=== PATIENT | male | born 1990 | race Caucasian/White ===

== ENCOUNTER 2016-05-10 13:50 | Emergency (ER) | payer OTHER ==
[~2016-05-10] VITALS: Ht 177.8 cm; Wt 75.0 kg
[~2016-05-10 13:50] MED LIST: HYDR-3129 PO; PYRI200T4 PO
[2016-05-10 13:52] VITALS: BP 136/74; PULSE 110; RESP 20; TEMP 98.4; O2SAT 100
[2016-05-10 13:58] VITALS: O2SAT 97
--- NOTE | 2016-05-10 13:58 | PD ---
HPI Chief Complaint: Altered Mental Status Time Seen by Provider: 13:51 Travel History International Travel<30 days: No Contact w/Intl Traveler<30days: No History of Present Illness HPI Patient is a 25-year-old male who presents the emergency department dropped off by a friend. Reportedly patient was found down, with a slight amount of blood around the nares shortly after having been seen by a friend, and brought here for altered mental status. When patient arrived at the front door by private vehicle patient was in the vehicle, altered, pierson and ashen, apenic with a pulse. Patient was emergently batted and seen by myself upon arrival. No family and her friend are present at this time and patient is unable to participate with history. [facility] Past Medical History Medical History: Unable to Obtain Past Surgical History Surgical History: Unable to Obtain Social History Alcohol Use: Yes (occ) Tobacco Use: Yes (1/2 ppd) Substance Use: No Allergies-Medications (Allergen,Severity, Reaction): Coded Allergies: No Known Allergies (Verified , 12/05/14) Reported Meds & Prescriptions Reported Meds & Active Scripts Active Review of Systems ROS Limitations: Clinical Condition, Altered Mental Status Physical Exam Exam Limitations: Clinical Condition, Altered Mental Status Narrative GENERAL: Young male pierson, ashen, apneic SKIN: Warm and dry. Tract davis in the arms bilaterally. HEAD: Atraumatic. Minimal dry blood around the narrow. Normocephalic. EYES: Pupils equal and round. 1 mm. No scleral icterus. No injection or drainage. ENT: No nasal bleeding or discharge. Mucous membranes pink and moist. TMs clear bilaterally. NECK: Supple CARDIOVASCULAR: Borderline tachycardia with heart rate in the 90s to 110s, regular rhythm. No murmur appreciated. RESPIRATORY: Apneic, ventilations assisted by bag valve mask with good bilateral breath sounds GASTROINTESTINAL: Abdomen soft, non-tender, nondistended. MUSCULOSKELETAL: No obvious deformities. Tract davis in the bilateral upper extremities NEUROLOGICAL: GCS 3 PSYCHIATRIC: Deferred given mental status Data Data Last Documented VS Vital Signs Date Time Temp Pulse Resp B/P Pulse Ox O2 Delivery O2 Flow Rate FiO2 05/10/16 16:42 90 18 120/60 100 05/10/16 15:15 Nasal Cannula 2 05/10/16 13:52 98.4 Orders Electrocardiogram (05/10/16 13:51) Basic Metabolic Panel (Bmp) (05/10/16 13:51) Complete Blood Count With Diff (05/10/16 13:51) Iv Access Insert/Monitor (05/10/16 13:51) Ecg Monitoring (05/10/16 13:51) Oximetry (05/10/16 13:51) Naloxone Inj (Narcan Inj) (05/10/16 14:00) Sodium Chloride 0.9% Flush (Ns Flush) (05/10/16 14:00) Drug Screen, Random Urine (05/10/16 13:51) Alcohol (Ethanol) (05/10/16 13:51) Labs Laboratory Tests Test 05/10/16 14:04 White Blood Count 14.0 TH/MM3 Red Blood Count 4.97 MIL/MM3 Hemoglobin 14.8 GM/DL Hematocrit 43.2 % Mean Corpuscular Volume 87.0 FL Mean Corpuscular Hemoglobin 29.9 PG Mean Corpuscular Hemoglobin 34.3 % Concent Red Cell Distribution Width 12.4 % Platelet Count 207 TH/MM3 Mean Platelet Volume 9.7 FL Neutrophils (%) (Auto) 43.6 % Lymphocytes (%) (Auto) 43.5 % Monocytes (%) (Auto) 10.3 % Eosinophils (%) (Auto) 2.3 % Basophils (%) (Auto) 0.3 % Neutrophils # (Auto) 6.1 TH/MM3 Lymphocytes # (Auto) 6.1 TH/MM3 Monocytes # (Auto) 1.4 TH/MM3 Eosinophils # (Auto) 0.3 TH/MM3 Basophils # (Auto) 0.0 TH/MM3 CBC Comment AUTO DIFF Differential Total Cells 100 Counted Neutrophils % (Manual) 45 % Band Neutrophils % 1 % Lymphocytes % 42 % Monocytes % 8 % Eosinophils % 4 % Neutrophils # (Manual) 6.4 TH/MM3 Differential Comment FINAL DIFF MANUAL Platelet Estimate NORMAL Platelet Morphology Comment NORMAL Red Cell Morphology Comment NORMAL Sodium Level 136 MEQ/L Potassium Level 4.0 MEQ/L Chloride Level 102 MEQ/L Carbon Dioxide Level 27.4 MEQ/L Anion Gap 7 MEQ/L Blood Urea Nitrogen 10 MG/DL Creatinine 1.18 MG/DL Estimat Glomerular Filtration 75 ML/MIN Rate Random Glucose 173 MG/DL Calcium Level 8.3 MG/DL Urine Opiates Screen POS Urine Barbiturates Screen NEG Urine Amphetamines Screen NEG Urine Benzodiazepines Screen NEG Urine Cocaine Screen POS Urine Cannabinoids Screen NEG Ethyl Alcohol Level LESS THAN 3 MG/DL MDM Medical Decision Making Medical Screen Exam Complete: Yes Emergency Medical Condition: Yes Medical Record Reviewed: Yes Differential Diagnosis 25-year-old male here for altered mental status, found down minutes after being seen normal by a friend. On exam patient is GCS 3, apneic with pinpoint pupils and tract davis consistent with opioid overdose. Differential includes closed head injury, skull fracture, facial fracture, electrolyte abnormality, alcohol intoxication, coingestion. Narrative Course Patient met by myself upon emergency department arrival and the bed. Ventilations were assisted by [id number] as he was apneic. IV established, blood obtained, placed on monitor. Patient given 2 mg Narcan IV with resolution of altered mental status, awake, initially confused but mental status improved rapidly. Admits to shooting heroin. Twelve-lead EKG shows sinus tachycardia, rate [address] abnormalities, normal intervals. CBC, BMP, blood alcohol level and urine drug screen obtained and notable for WBC 14.0, positive opioids and cocaine. Patient's mental status resolved. He was monitored for 3 hours in the emergency department without decompensation in mental status and respiratory status, need for repeat Narcan. Admits to shooting heroin recreationally. This is not a suicide attempt. Patient was encouraged to seek outpatient management for his chemical dependency. Critical Care Narrative Aggregate critical care time was 55 minutes. Time to perform other separately billable procedures was not included in the critical care time. My time did not include minutes spent treating any other patients simultaneously or on activities that did not directly contribute to the patient's treatment. The services I provided to this patient were to treat and/or prevent clinically significant deterioration that could result in: Cardiopulmonary decompensation, neurologic decompensation, , overdose, disability I provided critical care services requiring my management, as noted below: Chart data review, documentation time, medication orders and management, vital sign assessments/reviewing monitor data, ordering and reviewing lab tests, ordering and interpreting/reviewing x-rays and diagnostic studies, care of the patient and discussion of the patient with the admitting physicians. Diagnosis Primary Impression: Opioid overdose Qualified Code: T40.2X1A - Opioid overdose, accidental or unintentional, initial encounter Additional Impression: IV drug abuse Referrals: [facility] call for appointment Additional Instructions: Seek outpatient management for your substance abuse Med/Other Pt SpecificInfo: No Change to Meds Disposition: 01 DISCHARGE HOME Condition: Stable Beti Mendoza MD May 10, 2016 13:58 Beti Mendoza MD May 10, 2016 13:58
[2016-05-10] MEDS ORDERED: NALOXONE HCL 2 MG/2 ML VIAL IVP ONE (14:00)
[2016-05-10] MEDS ORDERED: SODIUM CHLORIDE 0.9% FLUSH 5 ML FLUSH IVF PRN (14:00)
[2016-05-10 14:16] LABS: AUTOMATED NEUTROPHIL # 6.1 TH/MM3 (1.8-7.7); BASOPHIL % 0.3 % (0.0-2.0); EOSINOPHIL # 0.3 TH/MM3 (0-0.4); EOSINOPHIL % 2.3 % (0.0-4.0); HEMATOCRIT 43.2 % (39.0-51.0); LYMPH % 43.5 % (9.0-44.0); LYMPHOCYTE # 6.1 TH/MM3 (1.0-4.8); MEAN CORPUSCULAR HEMOGLOBIN 29.9 PG (27.0-34.0); MEAN CORPUSCULAR HGB CONC 34.3 % (32.0-36.0); MONO % 10.3 % (0.0-8.0); NEUT % 43.6 % (16.0-70.0); PLATELET COUNT 207 TH/MM3 (150-450); RED BLOOD COUNT 4.97 MIL/MM3 (4.50-5.90); RED CELL DISTRIBUTION WIDTH 12.4 % (11.6-17.2)
[2016-05-10 14:17] LABS: HEMO FLAGS AUTO DIFF
[2016-05-10 14:23] LABS: AMPHETAMINE, URINE NEG (NEG); BARBITURATES, URINE NEG (NEG); COCAINE, URINE POS (NEG)
[2016-05-10 14:45] LABS: BANDS 1 % (0-6); EOSINOPHILS 4 % (0-4); NEUTROPHIL # MANUAL DIFF 6.4 TH/MM3 (1.8-7.7); PLATELET ESTIMATE SMEAR NORMAL (NORMAL); PLATELET MORPHOLOGY NORMAL (NORMAL); POLYS (SEG NEUTROPHILS) 45 % (16-70); SCAN/DIFF FINAL DIFF MANUAL; WBC DIFF SAMPLE 100
[2016-05-10 14:54] LABS: ANION GAP 7 MEQ/L (5-15); BICARBONATE 27.4 MEQ/L (21.0-32.0); BLOOD UREA NITROGEN 10 MG/DL (7-18); CHLORIDE 102 MEQ/L (98-107); GLOMERULAR FILTRATION RATE 75 ML/MIN (>89); SODIUM (NA) 136 MEQ/L (136-145)
[2016-05-10 15:15] VITALS: BP 128/77; PULSE 80; RESP 18; O2SAT 97
[2016-05-10 16:42] VITALS: BP 120/60; PULSE 90; RESP 18; O2SAT 100
--- NOTE | 2016-05-11 14:35 | EKG ---
Date Performed: 05/10/2016 Time Performed: 13:54:08 PTAGE: 25 years EKG: SINUS TACHYCARDIA ABNORMAL RHYTHM ECG INTERPRETATION BASED ON A DEFAULT AGE OF 39 YEARS NO PREVIOUS TRACING DOCTOR: Julio Cesar Lui Interpretating Date/Time 05/11/2016 14:31:03
== END 2016-05-10 17:15 | disposition home or self-care (01) ==
LOC: NEPC 13:50
DX: T40.2X1A Poisoning by other opioids, accidental (unintentional), initial encounter (principal); R00.0 Tachycardia, unspecified; F17.210 Nicotine dependence, cigarettes, uncomplicated
CPT/HCPCS: 80048; 80307; 80320; 85007; 85027; 93005; 96374; 99291; J2310

== ENCOUNTER 2016-10-15 23:10 | Emergency (ER) | payer OTHER ==
[~2016-10-15] VITALS: Ht 175.3 cm; Wt 58.0 kg
[2016-10-15 23:16] VITALS: BP 130/80; PULSE 90; RESP 14; TEMP 99.1; O2SAT 100
[2016-10-16] MEDS ORDERED: LIDOCAINE 1%/EPINEPHrine 1:100,000 SOLN 20 ML VIAL INFIL ONE
[2016-10-16 00:15] LABS: AUTOMATED NEUTROPHIL # 4.1 TH/MM3 (1.8-7.7); BASOPHIL % 0.5 % (0.0-2.0); EOSINOPHIL # 0.1 TH/MM3 (0-0.4); EOSINOPHIL % 1.7 % (0.0-4.0); HEMATOCRIT 42.2 % (39.0-51.0); HEMO FLAGS DIFF FINAL; LYMPH % 38.8 % (9.0-44.0); LYMPHOCYTE # 3.1 TH/MM3 (1.0-4.8); MEAN CELL VOLUME 86.1 FL (80.0-100.0); MEAN CORPUSCULAR HEMOGLOBIN 29.5 PG (27.0-34.0); MEAN CORPUSCULAR HGB CONC 34.2 % (32.0-36.0); MONO % 6.9 % (0.0-8.0); NEUT % 52.1 % (16.0-70.0); PLATELET COUNT 168 TH/MM3 (150-450); RED CELL DISTRIBUTION WIDTH 12.7 % (11.6-17.2); WHITE BLOOD COUNT 7.9 TH/MM3 (4.0-11.0)
[2016-10-16 00:29] LABS: ANION GAP 7 MEQ/L (5-15)
[2016-10-16 00:34] LABS: ALKALINE PHOSPHATASE 64 U/L (45-117); ALT (GPT) 37 U/L (12-78); AST (GOT) 20 U/L (15-37); BICARBONATE 28.6 MEQ/L (21.0-32.0); BLOOD UREA NITROGEN 13 MG/DL (7-18); CHLORIDE 107 MEQ/L (98-107); GLOMERULAR FILTRATION RATE 102 ML/MIN (>89); POTASSIUM 3.6 MEQ/L (3.5-5.1); SODIUM (NA) 143 MEQ/L (136-145); TOTAL BILIRUBIN ADULT 0.7 MG/DL (0.2-1.0)
[2016-10-16 00:38] LABS: ACETAMINOPHEN LESS THAN 2.0 MCG/ML (10.0-30.0)
--- NOTE | 2016-10-16 00:49 | PD ---
Physical Exam Narrative I was asked by Dr. Capone repair patient's laceration. Please see his documentation for H&P. Data Data Last Documented VS Vital Signs Date Time Temp Pulse Resp B/P Pulse Ox O2 Delivery O2 Flow Rate FiO2 10/15/16 23:36 18 10/15/16 23:16 99.1 90 130/80 100 Room Air Orders Lidocai-Epi 1%-1:100,000 Inj (Xylocaine- (10/16/16 00:00) Complete Blood Count With Diff (10/15/16 23:48) Comprehensive Metabolic Panel (10/15/16 23:48) Psych Screen (10/15/16 23:48) Drug Screen, Random Urine (10/15/16 23:48) Alcohol (Ethanol) (10/15/16 23:48) Salicylates (Aspirin) (10/15/16 23:48) Tylenol (Acetaminophen) (10/15/16 23:48) Labs Laboratory Tests Test 10/16/16 00:05 White Blood Count 7.9 TH/MM3 Red Blood Count 4.90 MIL/MM3 Hemoglobin 14.4 GM/DL Hematocrit 42.2 % Mean Corpuscular Volume 86.1 FL Mean Corpuscular Hemoglobin 29.5 PG Mean Corpuscular Hemoglobin 34.2 % Concent Red Cell Distribution Width 12.7 % Platelet Count 168 TH/MM3 Mean Platelet Volume 9.0 FL Neutrophils (%) (Auto) 52.1 % Lymphocytes (%) (Auto) 38.8 % Monocytes (%) (Auto) 6.9 % Eosinophils (%) (Auto) 1.7 % Basophils (%) (Auto) 0.5 % Neutrophils # (Auto) 4.1 TH/MM3 Lymphocytes # (Auto) 3.1 TH/MM3 Monocytes # (Auto) 0.5 TH/MM3 Eosinophils # (Auto) 0.1 TH/MM3 Basophils # (Auto) 0.0 TH/MM3 CBC Comment DIFF FINAL Differential Comment Sodium Level 143 MEQ/L Potassium Level 3.6 MEQ/L Chloride Level 107 MEQ/L Carbon Dioxide Level 28.6 MEQ/L Anion Gap 7 MEQ/L Blood Urea Nitrogen 13 MG/DL Creatinine 0.90 MG/DL Estimat Glomerular Filtration 102 ML/MIN Rate Random Glucose 82 MG/DL Calcium Level 8.7 MG/DL Total Bilirubin 0.7 MG/DL Aspartate Amino Transf 20 U/L (AST/SGOT) Alanine Aminotransferase 37 U/L (ALT/SGPT) Alkaline Phosphatase 64 U/L Total Protein 8.0 GM/DL Albumin 4.2 GM/DL Salicylates Level LESS THAN 1.7 MG/DL Acetaminophen Level LESS THAN 2.0 MCG/ML Ethyl Alcohol Level 165 MG/DL [facility] Supervised Visit with JOSÉ LUIS: No Procedures Procedure Narrative LACERATION REPAIR LOCATION: Left forearm radial aspect LENGTH: Approximately 2 cm in total length NUMBER OF STITCHES/SARKIS: 2 simple mattress REPAIR: Verbal consent was obtained. The area of the laceration was cleaned and prepped. The laceration was infiltrated with lidocaine with epi. The wound was copiously irrigated and explored without evidence of foreign body, bony involvement, ligament injury, tendon injury, or neurovascular injury. The wound was closed using 4-0 Ethilon. This was a single layer repair. A sterile dressing was applied by nurse. The patient was advised to keep the affected area as clean and dry as possible using soap and water. There were no complications. Patient tolerated the procedure well. Cameron Dexter Oct 16, 2016 00:49
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
== END 2016-10-16 01:43 | disposition left against medical advice (07) ==
LOC: NEPD 23:10
DX: S61.512A Laceration without foreign body of left wrist, initial encounter (principal); F41.9 Anxiety disorder, unspecified; F11.10 Opioid abuse, uncomplicated; F17.200 Nicotine dependence, unspecified, uncomplicated; X78.9XXA Intentional self-harm by unspecified sharp object, initial encounter; Z53.21 Procedure and treatment not carried out due to patient leaving prior to being seen by health care provider
CPT/HCPCS: 12001; 80053; 80307; 85025